=== PATIENT | male | born 1955 | race Caucasian/White ===

== ENCOUNTER 2018-05-19 10:38 | Inpatient (IN) | payer MEDICARE | END 2018-05-21 13:30 | disposition home or self-care (01) | LOC: PAS IN 10:38 → ORTHO 4S 17:15 | PROC: 0SRC0J9 Replacement of Right Knee Joint with Synthetic Substitute, Cemented, Open Approach (ICD-10-PCS; principal; 2018-05-19 13:05) | DX: M17.11 Unilateral primary osteoarthritis, right knee (principal); I10 Essential (primary) hypertension ==

== ENCOUNTER 2024-10-20 15:41 | Emergency (ER) | payer MEDICARE ==
[~2024-10-20] VITALS: Ht 177.8 cm; Wt 123.2 kg
[~2024-10-20 15:41] MED LIST: ASPI-1265 PO; FURO40TA4 PO; GABA-532 PO; HYDR-3972 PO; LISI40TA20 PO
--- NOTE | 2024-10-20 16:09 | Physician Documentation ---
History of Present Illness Stated Complaint: LT FOOT PAIN HPI Patient is a 69-year-old gentleman that presents to the emergency department for evaluation of left foot pain sustained this morning while he was working on his bathroom. Patient reports that he was standing up from bending down in his bathroom stepped on his foot just the wrong way and it has been hurting ever since. Patient denies any other concerns at this time. 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 Patient reports that he has had edema in his left foot intermittently for several months. Medication Reconciliation Allergies: Coded Allergies: heparin (Unverified Allergy, Severe, PER PT "THICKENS BLOOD" POSSIBLE KAYLIE, 10/20/24) ketorolac (Verified Adverse Reaction, Unknown, CAN'T HAVE DUE TO DECREASED KISNEY FUNCTION, 10/20/24) Scheduled Aspirin (Aspirin), 81 MG PO BIDBD Cephalexin*Monohydrate* (Keflex*), 1 CAP PO QID Furosemide (Furosemide), 40 MG PO DAILY, (Reported) Gabapentin (Gabapentin), 2 CAP PO TID, (Reported) Lisinopril* (Lisinopril*), 40 MG PO DAILY, (Reported) Scheduled PRN Hydrocodone Bit/Acetaminophen (Hydrocodon-Acetaminophn 10-325 tablet), 1-2 TAB PO Q4-6 hrs PRN for mild pain Review of Systems ROS As stated above in the HPI, otherwise all systems are reviewed and negative. Physical Exam Physical Exam VITALS: Reviewed and as above. GENERAL: Alert, no apparent distress. HEENT: Normocephalic, atraumatic, PERRL, EOMI, dry mucosa, no erythema RESPIRATORY: Lungs clear, normal breath sounds, no respiratory distress. CHEST: No accessory muscle use, no retractions CV: Regular rate, rhythm, no edema, no murmur, No: JVD GI: Soft, non-tender, bowels sounds present, no rebound, guarding, or rigidity BACK: No CVA tenderness, or swelling MUSCULOSKELETAL No deformities, edema and erythema noted to the left lower extremity, mild edema noted to the right lower extremity, pain with evaluation to the left lower extremity. SKIN: Warm and dry, no rash NEURO: Oriented x4, No motor or sensory deficit PSYCH: Normal mood and affect, no agitation Medical Decision Making Findings This patient presents with initial presentation of local erythema, warmth, swelling concerning for cellulitis. Sensitivity/pain to light touch around the erythematous area. No lymphangitic spread visible and no fluid pockets or fluctuance concerning for abscess noted. Low concern for osteomyelitis but evaluated based on radiologist recommendation an income conclusive findings on x-ray. Low concern for DVT. No immune compromise, bullae, pain out of proportion, or rapid progression concerning for necrotizing fasciitis. Patient to be discharged home with keflex. Patient will follow up with his primary care provider. Patient will return to the emergency department with any worsening of his current symptoms or any additional concerning symptoms that we discussed here today i.e. increased erythema increased swelling drainage fevers or any other concerning symptoms. Differential Dx:Considerations: Include: AAA, Angina/VT, Aortic dissection, Appendicitis, Bowel obstruction, Cholangitis, Cholelithasis, Constipation, Diverticular disease, Esophageal rupture, Esophagitis, Gastritis/PUD, Gastroenteritis, GI hemorrhage, Hernia, Hepatitis, Inflammatory BD, Ischemic bowel, Pancreatitis, Porphyria, Testicular torsion, Trauma, intraabdominal, Urinary obstruction, Urinary tract infection, Urolithiasis, Other Departure Disposition: HOME / SELF CARE / HOMELESS Impression: Primary Impression: Cellulitis Additional Impression: Foot pain Condition: Stable Discharge Instructions: Cellulitis Additional Instructions: This patient presents with initial presentation of local erythema, warmth, swelling concerning for cellulitis. Sensitivity/pain to light touch around the erythematous area. No lymphangitic spread visible and no fluid pockets or fluctuance concerning for abscess noted. Low concern for osteomyelitis but evaluated based on radiologist recommendation an income conclusive findings on x-ray. Low concern for DVT. No immune compromise, bullae, pain out of proportion, or rapid progression concerning for necrotizing fasciitis. Patient to be discharged home with keflex. Patient will follow up with his primary care provider. Patient will return to the emergency department with any worsening of his current symptoms or any additional concerning symptoms that we discussed here today i.e. increased erythema increased swelling drainage fevers or any other concerning symptoms. Tylenol for discomfort. Compression and rest as tolerated. Please follow up with the [facility]: [phone]. Referrals: NO PRIMARY CARE PROVIDER (PCP) Prescriptions Cephalexin*Monohydrate* (Keflex*) 500 Mg Capsule 1 CAP PO QID for 7 Days, #28 CAP Prov: HENNA WRIGHT DISTANCE LEARNING COORDINATOR 10/21/24 Education Educated: Patient Educated regarding: diagnosis, treatment, need for follow up Signature Scribe Signature: A Attestation: Scribed for Henna Wright by RODRIGO Modi . 10/21/24 00:09 HENNA WRIGHT Oct 20, 2024 16:09
--- NOTE | 2024-10-20 16:49 | RADIOLOGY REPORT ---
CLINICAL INDICATION: LT.FOOT PAIN TECHNIQUE: 3 radiographic views of the left foot were obtained. Comparison: None FINDINGS/IMPRESSION: There is subacute to chronic appearing fracture deformity of the distal 5th metatarsal . Small cyber crime investigator ior calcaneal bony spur. Periosteal reaction involving the 2nd through 4th metatarsals. Osteomyelitis can not be excluded.Significant focal dorsal forefoot soft tissue thickening measuring about 2.6 x 4 .2 cm. Correlate for Possible soft tissue mass versus edema. There appears to be edema of the plantar forefoot. If there is concern for osteomyelitis, MRI should be considered for further evaluation.
--- NOTE | 2024-10-20 20:47 | RADIOLOGY REPORT ---
DI CHEST,TWO VIEWS CLINICAL HISTORY: RULE OUT MATERIAL KIND IN ONE OF THE ARTERIES, BEFORE GOING TO MRI COMPARISON: None TECHNIQUE: Frontal and lateral view of the chest was obtained FINDINGS: Lines and Tubes: None Lungs: No focal consolidation. Pleura: No effusion. No pneumothorax. Cardiomediastinal contours: Heart size is within normal limits with uncoiling of the aorta. Bones: No acute osseous abnormality. IMPRESSION: No acute cardiopulmonary disease.
--- NOTE | 2024-10-20 23:31 | RADIOLOGY REPORT ---
[facility] EXAMINATION: MR MRI LOWER EXTREMITY LEFT TECHNIQUE: MRI of the left foot was performed. HISTORY: R/O pneumonitis, x-ray concerning for osteomyelitis COMPARISON: None FINDINGS: No evidence of acute osteomyelitis Focal edema and soft tissue swelling is seen in the dorsal forefoot which may reflect cellulitis. No abscess identified. No acute fracture or dislocation. Chronic fracture deformity of the distal 5th metatarsal. IMPRESSION: 1. No evidence of acute osteomyelitis. 2. Focal edema and soft tissue swelling is seen in the dorsal forefoot which may reflect cellulitis. No abscess identified.
[2024-10-21] MEDS ORDERED: CEPH-585 PO (00:06)
[2024-10-21 00:24] VITALS: BP 150/80; PULSE 66; RESP 18; TEMP 98.6; O2SAT 99
== END 2024-10-21 00:25 | disposition home or self-care (01) ==
LOC: ER 15:42
DX: L03.116 Cellulitis of left lower limb (principal); G62.9 Polyneuropathy, unspecified; Z88.8 Allergy status to other drugs, medicaments and biological substances; Z79.82 Long term (current) use of aspirin; Z79.899 Other long term (current) drug therapy
CPT/HCPCS: 71046; 73630; 73718; 99284